=== PATIENT | female | born 1990 | race Caucasian/White ===

== ENCOUNTER → 2017-02-08 | Outpatient (CLI) | payer BC ==
[~2017-02-08] MED LIST: DOCU-94 PO; PRENTAB26 PO
[2017-02-08 14:09] LABS: URINE APPEARANCE CLEAR (CLEAR); URINE BILIRUBIN NEG (NEG); URINE COLOR YELLOW; URINE NITRITE NEG (NEG); URINE PH 5.5 (4.5-7.5); URINE SPECIFIC GRAVITY 1.024 (1.000-1.030); UROBILINOGEN NEG (NEG)
[2017-02-08 14:17] LABS: MANUAL MICROSCOPIC REQUIRED? NO; REVIEW REQ? NO
== END | disposition home or self-care (01) ==
LOC: C.LABSPEC 13:33
PROVIDERS: ATTEND Obstetrics & Gynecology
DX: Z34.00 Encounter for supervision of normal first pregnancy, unspecified trimester (principal)

== ENCOUNTER → 2017-02-14 | Outpatient (CLI) | payer BC | END | disposition home or self-care (01) | LOC: C.PAPS 09:23 | PROVIDERS: ATTEND Obstetrics & Gynecology | DX: Z12.4 Encounter for screening for malignant neoplasm of cervix (principal) ==

== ENCOUNTER → 2017-02-14 | Outpatient (CLI) | payer BC ==
[2017-02-14 17:43] LABS: BASO % 0.1 %; BASO ABS # 0.01 K/uL (0-0.2); COMPLETE YES; EOS % 0.7 %; GTGD 50 Grams; IG% 0.4 %; LYMPH % 17.5 %; LYMPH ABS # 1.47 K/uL (1.2-3.4); MEAN CELL VOLUME 84.6 fL (80-100); MEAN CORPUSCULAR HEMOGLOBIN 30.1 pg (25-34); MEAN CORPUSCULAR HGB CONC 35.6 g/dl (32-36); MEAN PLATELET VOLUME 11.6 fL (7.4-10.4); MONO % 5.6 %; NEUT % 75.7 %; PLATELET COUNT 202 K/uL (130-400); RED BLOOD COUNT 4.02 M/uL (4.2-5.4)
[2017-02-16 16:17] LABS: AFP CONCENTRATION 34.3 NG/ML; AFP MULTIPLE OF MEDIAN 0.87; AFPTS GESTATIONAL AGE 18.6 WEEKS; AFPTS INSULIN DEP DIABETIC? NO; AFPTS MATERNAL WT 190 LBS; ALPHA-FETOPROTEIN RACE CAUCASIAN=W; EDD DETERMINED BY ULTRASOUND; ESTRIOL MULTIPLE OF MEDIAN 1.03; HISTORY OF NTD NO; INHIBIN A 92 PG/ML; INHIBIN A MOM 0.61; REPEAT SAMPLE? NO; hCG MULTIPLE OF MEDIAN 1.18
== END | disposition home or self-care (01) ==
LOC: C.LAB1850 16:09
PROVIDERS: ATTEND Obstetrics & Gynecology
DX: Z34.02 Encounter for supervision of normal first pregnancy, second trimester (principal)

== ENCOUNTER → 2017-02-14 | Outpatient (CLI) | payer BC ==
[2017-02-17 00:33] LABS: CHLAMYDIA TRACH RNA*** NOT DETECTED (NOT DETECTED); GC (NEIS GONORRHOEAE)RNA** NOT DETECTED (NOT DETECTED)
== END | disposition home or self-care (01) ==
LOC: C.LABSPEC 17:47
PROVIDERS: ATTEND Obstetrics & Gynecology
DX: Z34.02 Encounter for supervision of normal first pregnancy, second trimester (principal)

== ENCOUNTER → 2017-04-26 | Outpatient (CLI) | payer BC ==
[2017-04-26 10:04] LABS: HEMATOCRIT 36.1 % (37-47)
[2017-04-26 11:20] LABS: GTGD 50 Grams
[2017-04-26 11:38] LABS: URINE APPEARANCE CLEAR (CLEAR); URINE BILIRUBIN NEG (NEG); URINE COLOR YELLOW; URINE EPITHELIAL CELL AUTO >30 /lpf (0-5); URINE NITRITE NEG (NEG); URINE PH 5.5 (4.5-7.5); URINE SPECIFIC GRAVITY 1.024 (1.000-1.030); UROBILINOGEN NEG (NEG)
[2017-04-26 11:46] LABS: MANUAL MICROSCOPIC REQUIRED? NO; REVIEW REQ? NO
== END | disposition home or self-care (01) ==
LOC: C.LAB1850 08:54
PROVIDERS: ATTEND Obstetrics & Gynecology
DX: O09.33 Supervision of pregnancy with insufficient antenatal care, third trimester (principal); Z3A.00 Weeks of gestation of pregnancy not specified

== ENCOUNTER → 2017-06-20 | Outpatient (CLI) | payer BC | END | disposition home or self-care (01) | LOC: C.LABSPEC 13:06 | PROVIDERS: ATTEND Obstetrics & Gynecology | DX: O09.33 Supervision of pregnancy with insufficient antenatal care, third trimester (principal); Z3A.00 Weeks of gestation of pregnancy not specified ==

== ENCOUNTER 2017-07-12 18:08 | Inpatient (IN) | payer BC ==
[~2017-07-12] VITALS: Ht 175.3 cm; Wt 103.0 kg
[2017-07-12] MEDS ORDERED: LACTATED RINGER'S 1000ML 1,000 ML IV PRN (19:08)
[2017-07-12 19:31] LABS: HEMATOCRIT 36.8 % (37-47); MEAN CELL VOLUME 84.4 fL (80-100); MEAN CORPUSCULAR HEMOGLOBIN 28.7 pg (25-34); MEAN PLATELET VOLUME 12.6 fL (7.4-10.4); PLATELET COUNT 158 K/uL (130-400); RED BLOOD COUNT 4.36 M/uL (4.2-5.4); WHITE BLOOD COUNT 8.19 K/uL (4.8-10.8)
[2017-07-12] MEDS ORDERED: PATIENT'S ALLERGY INFO NEEDS ENTERED SCH (20:00)
[2017-07-12 22:25] VITALS: Ht 175.3 cm; Wt 103.0 kg
[2017-07-12] MEDS ORDERED: PRENTAB26 PO (22:33)
[2017-07-13] MEDS: BUTORPHANOL TARTRATE 1 MG/ML VIAL IV PRN ×2 (02:26→05:02)
[2017-07-13] MEDS: LACTATED RINGER'S 1000ML 1,000 ML IV SCH ×2 (07:26→15:32)
[2017-07-13] MEDS ORDERED: LACTATED RINGER'S 1000ML 500 ML IV PRN ×2 (09:01→18:22)
[2017-07-13] MEDS: OXYTOCIN 30 UNITS/500ML NSS IV PRN ×2 (09:58→19:32)
[2017-07-13] MEDS ORDERED: BUTORPHANOL TARTRATE 1 MG/ML VIAL IV PRN (14:45)
[2017-07-13] MEDS ORDERED: BUPIVACAINE 0.25% 30 ML VIAL ONE (17:14)
[2017-07-13] MEDS ORDERED: EpHEDrine SULFATE INJ 50 MG/ML AMP ONE (17:14)
[2017-07-13] MEDS ORDERED: FENTANYL 2MCG/ML ROPIV 1.25MG/ML 100ML BAG EPI ONE (17:14)
[2017-07-13] MEDS ORDERED: FENTANYL CITRATE INJ 50 MCG/1 ML 2 ML VIAL ONE (17:15)
[2017-07-13] MEDS ORDERED: NALOXONE HCL INJ 1 MG in SODIUM CHLORIDE 0.9% 1000ML 1,000 ML IV PRN (18:22)
[2017-07-13] MEDS ORDERED: PROMETHAZINE HCL INJ 6.25 MG in SODIUM CHLORIDE 0.9% 50ML 50 ML IV PRN (18:30)
[2017-07-13] MEDS ORDERED: DiphenhydrAMINE HCL 50 MG/ML VIAL IV PRN (18:30)
[2017-07-13] MEDS ORDERED: NALOXONE HCL INJ 0.4 MG/1 ML VIAL/CARP IV PRN (18:30)
[2017-07-13] MEDS ORDERED: ONDANSETRON INJ 2 MG/ML 2 ML VIAL IV PRN (18:30)
[2017-07-13] MEDS ORDERED: EpHEDrine SULFATE INJ 50 MG/ML AMP IV PRN (18:30)
[2017-07-13] MEDS ORDERED: NALBUPHINE HCL INJ 10 MG/ML AMP IV PRN (18:30)
[2017-07-13] MEDS: FENTANYL 2MCG/ML ROPIV 1.25MG/ML 100ML BAG EPI PRN (18:54)
[2017-07-14] MEDS: FENTANYL 2MCG/ML ROPIV 1.25MG/ML 100ML BAG EPI PRN (01:27)
[2017-07-14] MEDS: LACTATED RINGER'S 1000ML 1,000 ML IV SCH (01:27)
[2017-07-14] MEDS: OXYTOCIN 30 UNITS/500ML NSS IV PRN (07:24)
[2017-07-14] MEDS ORDERED: ACETAMINOPHEN 325 MG TAB PO PRN (07:30)
[2017-07-14] MEDS ORDERED: BENZOCAINE 20% AER SPR 82.5 GM CAN EXT PRN (07:30)
[2017-07-14] MEDS ORDERED: SUPERCREAM 0.870 % 15GM JAR EXT PRN (07:30)
[2017-07-14] MEDS ORDERED: OXYTOCIN 30 UNITS/500ML NSS IV PRN (07:30)
[2017-07-14] MEDS ORDERED: LANOLIN OINT EXT PRN ×2 (07:30)
[2017-07-14] MEDS ORDERED: DIPHTHERIA/TETANUS/PERTUSSIS 0.5 ML SYR/VIAL IM. ONE (07:30)
[2017-07-14] MEDS ORDERED: ACETAMINOPHEN/CODEINE 300/30MG TAB PO PRN (07:30)
[2017-07-14] MEDS ORDERED: HYDROCORTISONE ACETATE 25 MG SUPP PR PRN (07:30)
--- NOTE | 2017-07-14 07:38 | Anesthesiology Progress Note ---
Anesthesia Post Op Note Date & Time Jul 14, 2017 at 07:38 Vital Signs Pain Intensity: 0.0 Notes Mental Status: alert / awake / arousable, participated in evaluation Pt Amnestic to Procedure: Yes Nausea / Vomiting: adequately controlled Pain: adequately controlled Airway Patency, RR, SpO2: stable & adequate BP & HR: stable & adequate Hydration State: stable & adequate Neuraxial Anesthesia: was administered, sensory block is resolving Anesthetic Complications: no major complications apparent
--- NOTE | 2017-07-14 07:41 | Anesthesia Procedure Note ---
Anesthesia Epidural Removal Nt Date & Time Jul 14, 2017 at 07:40 Vital Signs Pain Intensity: 0.0 Notes Mental Status: alert / awake / arousable, participated in evaluation Nausea / Vomiting: adequately controlled Pain: adequately controlled Airway Patency, RR, SpO2: stable & adequate BP & HR: stable & adequate Hydration State: stable & adequate Neuraxial Anesthesia: was administered, sensory block is resolving Anesthetic Complications: no major complications apparent, pt satisfied with anesthetic care Epidural: removed without complications, with tip intact
[2017-07-14] MEDS ORDERED: EpHEDrine SULFATE INJ 50 MG/ML AMP IV PRN (07:45)
[2017-07-14] MEDS ORDERED: ATROPINE SULFATE 0.1 MG/ML 5ML SYR IV PRN (07:45)
[2017-07-14] MEDS: PRENATAL VITAMIN TAB PO SCH (08:00)
[2017-07-14] MEDS: DOCUSATE SODIUM 100 MG CAP PO SCH ×2 (08:00→19:47)
[2017-07-14] MEDS: FERROUS SULFATE 325 MG TAB PO SCH (08:00)
--- NOTE | 2017-07-14 08:04 | DELIVERY SUMMARY ---
DATE OF OPERATION: 07/14/2017 DATE OF DELIVERY: 07/14/2017 FINDINGS: Viable male with Apgars of 8 and 9. Baby delivered by a low forceps delivery for nonreassuring heart rate tracing. Nuchal cord x1 reduced on the perineum. Pediatrics in attendance for delivery. Cord gasses, cord blood samples obtained. Midline 4th degree laceration repaired, bilateral periurethral lacerations repaired. Estimated blood loss 500 mL. LABOR NOTE: The patient is a 27-year-old 1, para 0 with an EDC of 14 July at 39+ weeks gestational age who was admitted for induction for term gestational hypertension. The patient was seen in the office on 12 July for routine obstetrical check. She was noted to have an elevated blood pressure. The patient had PIH labs drawn which were within normal limits, however with the gestational hypertension at term she was admitted for induction. The patient presented to labor and delivery the evening prior to the beginning of the induction for cervical Ingram placement. The Ingram was removed in the morning and the patient was 3 cm dilated. Delivering physician assumed care for the patient at this point. Pitocin was initiated per induction protocol and increased per protocol. At 1400 hours patient had no change in her cervix. Vertex was still felt to be too high for rupture and Pitocin was continued. At 1700 hours the patient had become uncomfortable. She received Stadol for pain but then anesthesia was consulted and an epidural was placed. Following placement of the epidural she had artificial rupture of membranes for clear fluid. An intrauterine pressure catheter was placed. Shortly thereafter the patient had a prolonged deceleration for 5 minutes. This necessitated discontinuing the Pitocin, starting exogenous O2 and an IV fluid bolus. Baby responded to a knee chest position to bring the tracing back to a category 2. Forty-five minutes later the Pitocin was halved and reinitiated. The patient made progress over the next 8 hours. She went to 9 cm and had her bladder drained and had another deceleration requiring discontinuation of the Pitocin. Following this the baseline went up to the 160s to 170s. There was good short term beat to beat variability with accelerations. The Pitocin was held for an hour and then reinitiated. The patient was rechecked and was not fully dilated and began her second stage. The patient had no sensation to push and her epidural rate was decreased. With the beginning of her second stage the patient had decelerations with each contraction. Sharp return to baseline with good variability, still tachycardia but there were accelerations. After an hour the decelerations became deeper with less variability. The patient was pushing effectively and bringing the vertex down to a +2 but since the epidural had been decreased she was very uncomfortable. Anesthesia and pediatrics were summoned to labor and delivery and the patient was taken back to the delivery room and put in the dorsal lithotomy position. Anesthesia dosed up her epidural so she was more comfortable. Verbal consent was obtained from the patient for placement of Castelan forceps and from a +2 presentation the baby was delivered over a midline 4th degree laceration. Nuchal cord x1 reduced on the perineum. The baby passed off to pediatrics who was in attendance for the delivery. Cord gasses, cord blood samples were obtained and the placenta was delivered spontaneously and sent for pathological evaluation. Inspection of the vagina showed 4th degree laceration with bilateral second degree periurethral tears. The rectal mucosa was closed with 2 layers of 4-0 Vicryl, the first a running locking stitch, second an imbricating stitch. The sphincter muscle was reapproximated with 3 interrupted [id number] 2-0 Vicryl sutures. The laceration was then repaired with 4-0 and 2-0 Vicryl. The bilateral periurethral tears were closed with running 4-0 Vicryl sutures. Estimated blood loss 500 mL. Sponge and needle count was correct. I attest to the content of the Intraoperative Record and any orders documented therein. Any exception s are noted below.
[2017-07-14] MEDS: ACETAMINOPHEN/CODEINE 300/30MG TAB PO PRN ×3 (09:12→18:30)
[2017-07-14 10:20] VITALS: BP 143/76; PULSE 96; TEMP 37.6
[2017-07-14 15:20] VITALS: BP 133/79; PULSE 112; TEMP 38
[2017-07-14] MEDS ORDERED: GENTAMICIN INJ 80 MG in DEXTROSE 5% 100ML 100 ML IV ONE (15:35)
[2017-07-14 16:44] LABS: CREATININE 0.58 mg/dl (0.60-1.20)
[2017-07-14] MEDS ORDERED: GENTAMICIN CONSULT ACTIVE PRN (16:45)
--- NOTE | 2017-07-14 16:48 | Pharmacy Progress Note ---
Pharmacy Antibiotic Consult Date of Service: Jul 14, 2017. Pharmacy Dosing Scope Pharmacy is consulted to initiate [] IV dosing therapy, order appropriate labs and adjust drug dose/frequency. Subjective The patient is a 27 year old female admitted on Jul 12, 2017 at 19:09. Objective Height (Feet): 5 Height (Inches): 9.00 Weight (Kilograms): 103.000 Lab Results (24hrs): Test 07/14/17 16:06 Assessment & Plan Assessment: * Patient is a 27 yo female admitted for vaginal delivery * Ampicillin/Gentamicin post-delivery Plan: * Traditional dosing using adjusted body weight 80.92, Vdf 0.3 * Gentamicin 160 mg q8H (~2 mg/kg adjusted body weight) * Goal peak level estimate 6-8 * Goal trough level <2 * Peak and trough level ordered surrounding 0900 dose on 07/15. Ampicillin 1 gm q6H Pharmacy will continue to follow and will adjust dose/frequency as necessary. Thank you
[2017-07-14] MEDS: AMPICILLIN IV 1 GM in SODIUM CHLOR 0.9% AD-VAN 50ML 50 ML IV SCH ×2 (17:46→23:55)
[2017-07-14] MEDS: IBUPROFEN 600 MG TAB PO PRN ×2 (18:30→23:55)
[2017-07-14 19:30] VITALS: BP 128/93; PULSE 114; TEMP 37.6
[2017-07-14] MEDS: GENTAMICIN INJ 160 MG in DEXTROSE 5% 100ML 100 ML IV SCH (19:59)
[2017-07-14 23:45] VITALS: BP 127/77; PULSE 98; TEMP 37.1; O2SAT 97
[2017-07-15] VITALS (7 sets, daily range): BP systolic 124–137; BP diastolic 76–86; PULSE 85–107; TEMP 36.5–37.5; O2SAT 97–99
[2017-07-15] MEDS: GENTAMICIN INJ 160 MG in DEXTROSE 5% 100ML 100 ML IV SCH ×2 (03:33→13:20)
[2017-07-15] MEDS: AMPICILLIN IV 1 GM in SODIUM CHLOR 0.9% AD-VAN 50ML 50 ML IV SCH ×2 (05:52→12:20)
[2017-07-15] MEDS: IBUPROFEN 600 MG TAB PO PRN ×4 (05:54→23:57)
--- NOTE | 2017-07-15 06:45 | Progress Note ---
Subjective Jul 15, 2017. Subjective conversation w/ patient, physical exam Ambulation: ambulating normally Voiding: no voiding problems Passing Gas: Yes Diet Tolerance: Regular Diet Lochia: Small Feeding Type: Breast Feeding Review of Systems Constitutional: No fever, No chills, No sweats, No weight loss, No weakness, No fatigue, No problem reported Breast: No see HPI, No breast lump, No change in shape, No nipple discharge, No breast pain, No problem reported Female : No see HPI, No dysuria, No urinary frequency, No hematuria, No incontinence, No abnormal vaginal bleeding, No vaginal discharge, No problem reported Objective Vital Signs Date Time Temp Pulse Resp B/P (MAP) Pulse Ox O2 Delivery O2 Flow Rate FiO2 07/15/17 03:30 36.5 85 16 126/76 (93) 99 Room Air 07/14/17 23:45 Room Air 07/14/17 23:45 37.1 98 16 127/77 (94) 97 Room Air 07/14/17 19:30 37.6 114 18 128/93 (105) Room Air 07/14/17 19:30 Room Air 07/14/17 15:20 38.0 112 20 133/79 (97) Room Air 07/14/17 15:20 Room Air 07/14/17 10:20 37.6 96 20 143/76 (98) Room Air 07/14/17 10:20 Room Air Physical Exam General Appearance: WELL-APPEARING, NO APPARENT DISTRESS Abdomen: non tender, soft Fundus: Firm, Non-Tender, Relation to Umbilicus (2 below U) Laboratory Results Last 24 Hours Test 07/14/17 16:06 07/15/17 06:24 Creatinine 0.58 mg/dl Est Creatinine Clear Calc Drug Dose 186.2 ml/min Estimated GFR () 146.4 Estimated GFR (Non- 126.3 Assessment and Plan Day#: 1 Continue Routine Care: s/p forceps delivery with temp elevation to 38 degrees. now afebrile for 12 hours on amp & gent will continue for total of 24 hours. continue rest of care plan.
--- NOTE | 2017-07-15 07:04 | Discharge Instructions ---
Discharge Instructions Date of Service Jul 15, 2017. Admission Reason for Admission: Check Blood Pressure Discharge Discharge Diagnosis / Problem: DELIVERY VAGINAL WITH VACUUM Discharge Goals Goal(s): Routine recovery after delivery Medications Continue Dispensed Medications: supercream, dermaplast, tucks, lansinoh Activity Recommendations Activity Limitations: per Instructions/Follow-up section . Instructions / Follow-Up Instructions / Follow-Up ACTIVITY RECOMMENDATIONS: * Gradual return to full activity over the next 2-3 weeks. * No lifting - nothing heavier than baby over the next 2-3 weeks. * Do not engage in vigorous exercise, sexual activity or sports until cleared by your physician. * Do not drive or operate any motorized equipment until cleared by your physician. * You may shower/bathe daily. MEDICATIONS: For discomfort or pain, you may use Acetaminophen (Tylenol), Ibuprofen (Advil), or Naproxen (Aleve) following the package directions. For constipation you may use Colace following the package directions. BREAST CARE: If you are not breast feeding: * Wear a supportive bra 24 hours a day for one to two weeks. * Avoid stimulating your breasts and nipples as much as possible during the first few weeks after delivery. * When taking a shower, have the warm water hit your back, not breasts. * When your breasts feel full, apply ice packs. Usually three to four times a day helps ease the discomfort. * Take a mild pain medication (Tylenol / Motrin) when you are uncomfortable. If breast feeding: * Use breast milk to lubricate nipples. Lansinoh cream may be used for sore nipples. You do not need to remove cream prior to breast feeding. If using a different brand of cream, check the label for directions regarding removal of cream prior to nursing. * Wear a supportive bra. * If having problems with breasts or breast feeding, call a netsuite consultant or your health care provider. EPISIOTOMY CARE: After delivery, if you have an episiotomy (stitches), the following steps will ease discomfort and aid healing. * For the first 24 hours after delivery, place ice packs next to your episiotomy to help reduce swelling. * After the first 24 hour-period, sitz baths, either portable or in the tub, are suggested. A shower with a shower arm sprayed over the episiotomy may be comforting. * Magi care should be done after each voiding and bowel movement. Squirt warm water from a plastic bottle over the perineum (region of the body between the anus and urinary opening) and pat dry. * Use Dermoplast to ease discomfort. Shake container. Glen directly over the episiotomy. Place a Tucks on a clean sanitary pad next to your episiotomy. SPECIAL CARE INSTRUCTIONS: When you are discharged from the hospital, it is important for you to follow the instructions listed below: * During the first week at home, you should be able to care for yourself and your baby. In addition, the usual light household activities are encouraged. * Limit your activities to the way you feel. Do not try to clean the house or move furniture. Be sensible. * If you actively engage in sports and have done so up until the time of your delivery, you may resume these activities as soon as you feel able. This may take up to one month or even longer. Use good judgment. * Continue to take your vitamins for at least six weeks after the of your baby. * Your diet need not be limited unless you were on a special diet before your delivery. Breast-feeding mothers need around 2500 calories per day and at least 64-80 ounces of fluid per day (8 to 10 glasses). * You should eat foods from the four major food groups. Crash diets or fad diets are to be avoided. Eating lean meats, fresh fruits and vegetables, low-fat dairy products, high fiber foods and a regular exercise program, will help you get back to your pre- weight without putting your health at risk. * Constipation is sometimes a problem after delivery. Take a mild laxative as needed. If breast feeding, Milk of Magnesia is acceptable to use. You may use a suppository or Fleets enema if no episiotomy. * A daily shower or tub bath is suggested. Be sure to thoroughly and gently dry the perineum. * A bloody vaginal discharge will usually continue until around four weeks post . A small amount of bleeding may continue for as long as six weeks. Vaginal discharge changes from the bright red bleeding after delivery to pink then brownish and finally yellowish-pink before becoming white and disappearing. * Bleeding may increase with activity. Your first period may come in 4-8 weeks. If you are breast feeding, your period may be delayed even longer. * [place] (sex) can begin whenever both you and your partner feel comfortable and do not have any form of genital infection. It is recommended that you wait at least six weeks for internal and external healing to occur. If you have questions, please talk to your health care practitioner. A condom should be used to prevent infection and . * Foreplay, gentle intercourse and lubrication is very important the first several times to prevent pain. A water-based lubricant such as K-Y jelly or Astroglide may be used. * If you have RH negative blood and your baby is RH positive, you will receive RHOGAM by injection prior to discharge. The nurse will give you a card to keep with you that has the date and place that you received RHOGAM after delivery. * During your care, you had a Rubella screen done to check for the presence of rubella antibodies in your blood. If your test was negative, you will receive a Rubella vaccine prior to discharge. This vaccine may cause a fever, soreness at the injection site and flu-like symptoms. If these symptoms persist, notify your health care practitioner. is not advised for one month after a Rubella vaccine. * Verbalizes understanding of car seat law as reviewed with patient nursing. * Car Seat hand-out given and reviewed with patient by nursing. * Shaken baby information reviewed with patient by nursing. Call you doctor if: * Heavy bleeding (saturating several pads an hour) or passing clots the size of your fist. * A fever >101 degrees F (38.3 degrees C) on two occasions four hours apart and /or chills. * Unusual pain in the pelvic or vaginal areas. * "Baby Blues" lasting longer than two weeks. If you have any questions or concerns, call your health care practitioner at . FOLLOW UP VISIT: * Please call the office at to schedule a 6 week examination. It is important you keep this appointment. It is important for you to make arrangements for either yearly or twice yearly check-ups thereafter. Current Hospital Diet Patient's current hospital diet: Regular OB Diet Discharge Diet Recommended Diet: Regular Diet Pending Studies Studies pending at discharge: no Medical Emergencies . Who to Call and When: Medical Emergencies: If at any time you feel your situation is an emergency, please call [phone] immediately. . Non-Emergent Contact Non-Emergency issues call your: Primary Care Provider . . "Provider Documentation" section prepared by Rachna Varma. . VTE Core Measure Inpt VTE Proph given/why not?: Treatment not indicated
[2017-07-15 07:21] LABS: CREATININE 0.43 mg/dl (0.60-1.20)
[2017-07-15] MEDS: DOCUSATE SODIUM 100 MG CAP PO SCH ×2 (07:58→20:12)
[2017-07-15] MEDS: FERROUS SULFATE 325 MG TAB PO SCH (07:58)
[2017-07-15] MEDS: PRENATAL VITAMIN TAB PO SCH (07:58)
[2017-07-15] MEDS: DOCUSATE SODIUM/SENNA 50/8.6MG TAB PO SCH (09:00)
[2017-07-15] MEDS ORDERED: GENT. PEAK 1 EA IV SCH (09:00)
[2017-07-15] MEDS ORDERED: BISACODYL 5 MG TABEC PO SCH (20:00)
[2017-07-16 07:35] LABS: CREATININE 0.28 mg/dl (0.60-1.20)
--- NOTE | 2017-07-16 08:06 | Progress Note ---
Subjective Jul 16, 2017. Subjective conversation w/ patient, physical exam Ambulation: ambulating normally Voiding: no voiding problems Passing Gas: Yes Diet Tolerance: Regular Diet Lochia: Moderate Feeding Type: Breast Feeding Pain: controlled Review of Systems Constitutional: No problem reported Respiratory: No problem reported Cardiac: No problem reported Breast: No problem reported Abdomen: No problem reported Female : No problem reported Objective Vital Signs Date Time Temp Pulse Resp B/P (MAP) Pulse Ox O2 Delivery O2 Flow Rate FiO2 07/15/17 23:50 37.0 96 18 132/76 (94) 98 Room Air 07/15/17 23:50 Room Air 07/15/17 19:45 37.1 106 18 132/80 (97) 97 Room Air 07/15/17 16:25 97 Room Air 07/15/17 15:00 37.5 107 18 132/86 (101) 97 Room Air 07/15/17 12:00 37.0 107 18 137/80 (99) 97 Room Air Physical Exam General Appearance: WELL-APPEARING, NO APPARENT DISTRESS Respiratory/Chest: no respiratory distress Cardiovascular: regular rate, rhythm Abdomen: non tender, soft Fundus: Firm Extremities: normal inspection Laboratory Results Last 24 Hours Test 07/16/17 06:50 Creatinine 0.28 mg/dl Est Creatinine Clear Calc Drug Dose 385.6 ml/min Estimated GFR () > 150.0 Estimated GFR (Non- > 150.0 Assessment and Plan Post- Day#: 2 Continue Routine Care: PPD#2 doing well s/p forceps delivery with 4th degree tear. Discussed stool softeners - rx colace. Discharge to home today, instructions discussed. F/u office 6w.
[2017-07-16] MEDS ORDERED: DOCU-94 PO (08:07)
[2017-07-16] MEDS: DOCUSATE SODIUM 100 MG CAP PO SCH (08:48)
[2017-07-16] MEDS: DOCUSATE SODIUM/SENNA 50/8.6MG TAB PO SCH (08:48)
[2017-07-16] MEDS: PRENATAL VITAMIN TAB PO SCH (08:48)
[2017-07-16] MEDS: FERROUS SULFATE 325 MG TAB PO SCH (08:48)
[2017-07-16 08:50] VITALS: BP 137/72; PULSE 92; TEMP 36.9
[2017-07-16] MEDS: IBUPROFEN 600 MG TAB PO PRN (08:50)
[2017-07-16 15:30] VITALS: BP 145/95; PULSE 93; TEMP 37.3
[2017-07-16 17:01] VITALS: BP 142/90
[2017-07-16 17:15] VITALS: BP_DIAS 90; PULSE 93; TEMP 37.3
--- NOTE | 2017-07-17 23:44 | DISCHARGE SUMMARY ---
ADMITTING DIAGNOSES: 1. Complicated at 39 weeks gestational age. 2. Gestational hypertension. DISCHARGE DIAGNOSES: 1. Same. 2. Nonreassuring heart rate tracing. 3. fever. PROCEDURES PERFORMED: 1. Low forceps delivery. 2. Repair of fourth degree laceration. 3. antibiotics. DISCHARGE MEDICATION: Colace 100 mg p.o. q. daily. ADMISSION HISTORY: The patient is a 27-year-old 1, para 0 with an EDC of 14 July who was admitted at 39+ weeks gestational age for induction of labor for term gestational hypertension. The patient was seen in the office on 12 July for routine obstetrical check. She was noted to have an elevated blood pressure. The patient had preeclamptic labs drawn which were within normal limits; however, with the gestational hypertension at term, she was admitted for induction. The patient presented to labor and delivery on the 12 of July and had a cervical Ingram placement. ADMISSION PHYSICAL EXAMINATION: GENERAL: Showed a gravid female in no acute distress. VITAL SIGNS: Blood pressure 140/90. HEENT: Unremarkable. NECK: Supple. LUNGS: Clear. HEART: With a regular rhythm and rate. ABDOMEN: Gravid, vertex, positive heart tones, estimated weight of 8 pounds. PELVIC: Showed the cervix to be 3 cm dilated. EXTREMITIES: Showed +1 edema. NEUROLOGICAL: Grossly intact. ADMISSION LABORATORY VALUES: Showed an H&H of 12.5 and 36.8. HOSPITAL COURSE: The patient had the cervical Ingram placement which was removed in the morning, her cervix was 3 cm dilated. Delivering physician assumed care for the patient at this point. Pitocin was initiated per induction protocol and increased per protocol. Membranes were ruptured at approximately 1700 hours for clear fluid. She received Stadol for pain and then anesthesia was consulted and epidural was placed. Following the epidural, an intrauterine pressure catheter was placed to monitor contractions. Shortly thereafter, the patient had a prolonged deceleration for 5 minutes. This necessitated discontinuing the Pitocin and starting exogenous O2 and IV fluid bolus. Baby responded to knee-chest position and brought the tracing back to category 2. 45 minutes later, the Pitocin was halved and reinitiated. The patient made progress over the next hour, she went to 9 cm and had her bladder drained and had another deceleration requiring discontinuation of the Pitocin. Following this, the baseline went to the 160s-170s, but there was good short term [id number] variability with accelerations. Tracing was felt to be category 2. Pitocin was held for an hour and then reinitiated. The patient was rechecked and was fully dilated and began her second stage. The patient had no sensation to push and her epidural rate was decreased. With the beginning of the second stage, the patient had decelerations with these contractions, sharp return to baseline with good variability. Tachycardia was still present, but there were accelerations. After an hour, the decelerations became deeper with less variability. The patient was pushing effectively and brought the vertex down to a +2 but after the epidural had been decreased, she was very uncomfortable. Anesthesia and pediatrics were summoned to labor and delivery and the patient was taken back to the delivery room and put in a dorsal lithotomy position. Anesthesia dosed up the epidural, so she was comfortable. Verbal consent was obtained from the patient for placement of Castelan forceps and from a +2 presentation, the baby was delivered over midline. Fourth degree laceration for nonreassuring heart rate tracing. Nuchal cord x1 was reduced on the perineum. Baby was passed off to pediatrics who was in attendance for the delivery. Cord blood gases, cord samples were obtained. Placenta delivered spontaneously and sent for pathological evaluation. The fourth degree laceration was repaired. Estimated blood loss was 500 mL. on the afternoon of delivery, the patient spiked a fever. She was started on antibiotics per the direction of the covering meat counter worker at that point. The patient defervesced and the antibiotics were discontinued. She was discharged home on the second day with routine discharge instructions. She will follow up in the office in 6 weeks' time for a check but as always, she was instructed to call with any questions, problems or difficulties.
== END 2017-07-16 17:20 | disposition home or self-care (01) | DRG 774 ==
LOC: C.OBG 18:08 → C.OPB 18:08 → C.OBG 19:09 → C.OPB 19:09 → C.LD 22:16 → C.OBG 07-14 11:03
PROVIDERS: ADMIT Obstetrics & Gynecology; ATTEND Obstetrics & Gynecology
PROC: 3E0P7GC Introduction of Other Therapeutic Substance into Female Reproductive, Via Natural or Artificial Opening (ICD-10-PCS; 2017-07-12)
PROC: 3E033VJ Introduction of Other Hormone into Peripheral Vein, Percutaneous Approach (ICD-10-PCS; 2017-07-13)
PROC: 10903ZC Drainage of Amniotic Fluid, Therapeutic from Products of Conception, Percutaneous Approach (ICD-10-PCS; 2017-07-13)
PROC: 0UQMXZZ Repair Vulva, External Approach (ICD-10-PCS; principal; 2017-07-14)
PROC: 0DQR0ZZ Repair Anal Sphincter, Open Approach (ICD-10-PCS; principal; 2017-07-14)
PROC: 0KQM0ZZ Repair Perineum Muscle, Open Approach (ICD-10-PCS; principal; 2017-07-14)
PROC: 10D07Z3 Extraction of Products of Conception, Low Forceps, Via Natural or Artificial Opening (ICD-10-PCS; principal; 2017-07-14)
PROC: 0DQP0ZZ Repair Rectum, Open Approach (ICD-10-PCS; principal; 2017-07-14)
DX: O14.94 Unspecified pre-eclampsia, complicating childbirth (principal); O86.4 Pyrexia of unknown origin following delivery; O70.3 Fourth degree perineal laceration during delivery; O71.82 Other specified trauma to perineum and vulva; O76 Abnormality in fetal heart rate and rhythm complicating labor and delivery; O69.81X0 Labor and delivery complicated by cord around neck, without compression, not applicable or unspecified; Z3A.39 39 weeks gestation of pregnancy; Z37.0 Single live birth

== ENCOUNTER → 2017-07-12 | Outpatient (CLI) | payer BC ==
[2017-07-12 13:20] LABS: HEMATOCRIT 37.9 % (37-47); MEAN CELL VOLUME 83.5 fL (80-100); MEAN CORPUSCULAR HEMOGLOBIN 28.6 pg (25-34); MEAN CORPUSCULAR HGB CONC 34.3 g/dl (32-36); MEAN PLATELET VOLUME 12.5 fL (7.4-10.4); PLATELET COUNT 143 K/uL (130-400); RED BLOOD COUNT 4.54 M/uL (4.2-5.4); WHITE BLOOD COUNT 8.03 K/uL (4.8-10.8)
[2017-07-12 14:16] LABS: ALB/GLOB RATIO 0.7 (0.9-2); ALKALINE PHOSPHATASE 177 U/L (45-117); ALT/SGPT 24 U/L (12-78); AST/SGOT 18 U/L (15-37); BLOOD UREA NITROGEN 5 mg/dl (7-18); BUN/CREATININE RATIO 9.8 (10-20); CALCIUM 8.9 mg/dl (8.5-10.1); CARBON DIOXIDE 24 mmol/L (21-32); CHLORIDE 105 mmol/L (98-107); CREATININE 0.48 mg/dl (0.60-1.20); GLUCOSE 76 mg/dl (70-99); POTASSIUM 3.5 mmol/L (3.5-5.1); SODIUM 137 mmol/L (136-145)
== END | disposition home or self-care (01) ==
LOC: C.LAB1850 12:10
PROVIDERS: ATTEND Obstetrics & Gynecology
DX: O13.3 Gestational [pregnancy-induced] hypertension without significant proteinuria, third trimester (principal)

== ENCOUNTER 2018-03-10 13:32 | Emergency (ER) | payer BC ==
[~2018-03-10] VITALS: Ht 175.3 cm; Wt 89.9 kg
[2018-03-10 13:39] VITALS: TEMP 37.3; Ht 175.3 cm; Wt 89.9 kg
[2018-03-10] MEDS ORDERED: SODIUM CHLORIDE 0.9% 1000ML 1,000 ML IV STA (14:09)
[2018-03-10] MEDS ORDERED: OPTIRAY 320 IV PRN (14:15)
[2018-03-10] MEDS ORDERED: birth control patch TOP (14:25)
[2018-03-10 14:44] LABS: EOS % 0.2 %; EOS ABS # 0.01 K/uL (0-0.5); HEMATOCRIT 37.8 % (37-47); HEMOGLOBIN 13.2 g/dL (12.0-16.0); IG# 0.01 K/uL (0.00-0.02); LYMPH % 20.4 %; LYMPH ABS # 1.24 K/uL (1.2-3.4); MEAN CELL VOLUME 83.1 fL (80-100); MEAN CORPUSCULAR HGB CONC 34.9 g/dl (32-36); MEAN PLATELET VOLUME 10.6 fL (7.4-10.4); MONO % 7.7 %; MONO ABS # 0.47 K/uL (0.11-0.59); NEUT % 71.5 %; NEUT ABS # 4.36 K/uL (1.4-6.5); PLATELET COUNT 181 K/uL (130-400); RED CELL DISTRIBUTION WIDTH CV 12.6 % (11.5-14.5); RED CELL DISTRIBUTION WIDTH SD 37.8 fL (36.4-46.3); WHITE BLOOD COUNT 6.09 K/uL (4.8-10.8)
[2018-03-10 15:11] LABS: ALBUMIN 3.7 gm/dl (3.4-5.0); CALCIUM 9.1 mg/dl (8.5-10.1); CREATININE 0.66 mg/dl (0.60-1.20); POTASSIUM 3.4 mmol/L (3.5-5.1)
[2018-03-10 15:14] LABS: TOTAL PROTEIN 7.9 gm/dl (6.4-8.2)
--- NOTE | 2018-03-10 15:30 | EMERGENCY ROOM VISIT NOTE ---
ED Visit Note First contact with patient: 13:53 CHIEF COMPLAINT: Abdominal pain, diarrhea and bloody stool HISTORY OF PRESENTING ILLNESS: This is a 27-year-old female who presents to the emergency department with complaint of abdominal pain, diarrhea and bloody stool that started this morning. Patient states that she woke up having abdominal pain and bloating, she states that the pain has been coming in intermittent waves of pressure and cramps and she feels the urge to have a bowel movement. She states that she has had diarrhea today she has had at least 6 episodes, 2 of which have been bright red blood, however subsequent diarrhea has been nonbloody. She states that her abdominal pain feels a little bit better after moving her bowels. She denies any associated nausea or vomiting. She denies any fevers, but does state she has had some cold sweats off and on today. She denies any urinary symptoms. She states that she had chicken wings a few days ago, she cannot think of anything else unusual. She denies any recent travel, denies any recent antibiotics in the past few months, and denies any recent sick contacts with GI symptoms. She denies a family history of IBD. REVIEW OF SYSTEMS: A complete 10 point review of systems was reviewed with the patient with pertinent positives and negatives as per history of present illness. All else were negative. PAST MEDICAL HISTORY: No significant past medical or surgical history. FAMILY HISTORY: No family history of inflammatory bowel disease. SOCIAL HISTORY: Lives at home. Denies tobacco use. ALLERGIES: No known allergies PHYSICAL EXAM: CONSTITUTIONAL: Pleasant and cooperative. No acute distress. Mildly dehydrated , but otherwise well appearing and well nourished. HEENT: Normocephalic, atraumatic. Pupils equal, round and reactive to light, EOMI. TMs normal. Pharynx normal. Tacky mucous membranes. NECK: Supple, full active range of motion without discomfort. RESPIRATORY: Clear to auscultation bilaterally with no wheezing, crackles, rhonchi or stridor. Equal expansion bilaterally. CARDIOVASCULAR: Regular rate and rhythm with no murmurs, rubs or gallops. Normal peripheral perfusion. No edema. GASTROINTESTINAL: Soft, tender to palpation of the left lower quadrant, nondistended. No rebound tenderness or guarding. No CVA tenderness. No palpable masses or HSM. Bowel sounds present in all quadrants. DIGITAL RECTAL EXAM: Normal rectal tone, no external or internal hemorrhoids, no anal fissures or areas of tenderness, no masses palpable. Brown stool, guaiac positive. MUSCULOSKELETAL: Full range of motion of all joints without discomfort. INTEGUMENTARY: No rash or other significant dermatologic conditions noted. NEUROLOGIC: Alert and oriented X 4 with normal affect. Normal strength and sensation in all 4 extremities. No focal neurologic deficits noted. Normal speech. Normal gait observed. ED COURSE AND MEDICAL DECISION MAKING: CC: Patient presenting with complaint of abdominal pain, diarrhea, and bloody stools DIFFERENTIAL DIAGNOSIS: Includes, but not limited to gastroenteritis, food poisoning, colitis, inflammatory bowel disease, GI bleed, hemorrhoids, anal fissure, diverticulitis, anemia, dehydration, among others. INTERPRETATION OF LABS: No leukocytosis, no anemia, no significant electrolyte abnormalities, normal renal function, normal liver enzymes and lipase. Negative serum . UA appears consistent with contamination and dehydration, no clear evidence for infection. IMAGING: ABD/PELVIS IV CONTRAST ONLY CLINICAL HISTORY: 27 years-old Female presenting with ABDOMINAL PAIN, BLOODY STOOLS, severe abdominal cramping. TECHNIQUE: Multidetector CT of the abdomen and pelvis was performed after the administration of intravenous contrast. IV contrast: 94 mL of Optiray 320. A dose lowering technique was used consistent with the principles of ALARA (as low as reasonably achievable). COMPARISON: None. CT DOSE (mGy.cm): The estimated cumulative dose is 484.25 mGy.cm. FINDINGS: Cable Technician topogram: Unremarkable. Lung bases: Minimal basilar opacities, likely atelectasis. Normal heart size. No pericardial or pleural effusion. Liver: Normal morphology. No liver lesion. Patent hepatic vasculature. Biliary: No intrahepatic or extrahepatic biliary ductal dilatation. Normal gallbladder. Pancreas: Normal. Spleen: Normal. Adrenal glands: Normal. Kidneys and ureters: Subcentimeter hypodensity in the posterior aspect of the interpolar region the right kidney likely small cyst. Similar cyst noted in the left kidney. Parenchyma otherwise normal. No nephrolithiasis. No hydronephrosis. Bladder: Incompletely evaluated secondary to underdistention. Pelvic organs: Uterus and ovaries normal. Bowel: Mild colonic wall thickening of the descending colon with trace pericolonic inflammatory change. The transverse colon is involved to a lesser degree. The sigmoid colon and rectum are not overtly inflamed. The appendix is normal. No bowel obstruction. Peritoneal cavity: No free fluid or intraperitoneal gas. Lymph nodes: No enlarged lymph nodes in the abdomen or pelvis. Vasculature: Aorta and IVC patent and normal in caliber. Abdominal wall: Normal. Musculoskeletal: Normal. IMPRESSION: 1. Thickening along the transverse and descending colon, most likely infectious colitis. Only mild pericolonic inflammatory changes. Ulcerative colitis is a less likely diagnostic consideration considering lack of involvement of the sigmoid colon and rectum. MEDICATION RECONCILIATION: I attest that I have personally reviewed the patient 's current medication list. INITIAL VITAL SIGNS REVIEW: I reviewed the patient's initial vital signs and interpret them as follows: T: Afebrile; BP: Hypertensive; HR: Tachycardic; RR : Within normal limits; Pulse Ox: Within normal limits on room air. Blood pressure screening: The patient was found to have an elevated blood pressure, which was felt to be situational. SUMMARY: Patient was evaluated at bedside, history and physical exam performed. Patient is alert and oriented, no acute distress, resting calmly in the stretcher. She has abdominal tenderness most significant in the left lower quadrant, but no rebound tenderness or guarding. Guaiac POSITIVE stool on rectal exam. Orders were placed at bedside for labs, UA, , IV fluids for hydration, CT abdomen/pelvis to evaluate for diverticulitis. Patient was offered something for pain, she declined at this time. Patient discussed with Dr. Espinoza, who agrees with my assessment and plan. Labs and imaging reviewed as above, no significant abnormalities. CT findings consistent with colitis, presumed infectious. Given the patient's acute onset of symptoms, I do suspect that she has a form of food poisoning or gastroenteritis. She has been afebrile, has a normal white count, and tachycardia is improved after IV fluids. I do not feel that she warrants antibiotic treatment at this time. Stool cultures pending. Patient reassessed multiple times throughout ED stay, she is much improved, and tolerating oral fluids well. Patient was updated on all results and plan for discharge, she was encouraged to follow closely with her primary care provider. Patient was also given strict return precautions should her symptoms worsen, she verbalized understanding. Patient was discharged home in stable condition and ambulatory. Current/Historical Medications Scheduled [ control patch], 1 PATCH TOP UD Allergies Coded Allergies: No Known Allergies (Unverified , 5/5/18) Vital Signs Date Time Temp Pulse Resp B/P (MAP) Pulse Ox O2 Delivery O2 Flow Rate FiO2 03/10/18 17:50 92 16 140/82 97 03/10/18 15:25 88 16 148/80 98 Room Air 03/10/18 13:39 37.3 126 20 158/89 97 Room Air Laboratory Results 03/10/18 14:30 Red Blood Count 4.55, Mean Corpuscular Volume 83.1, Mean Corpuscular Hemoglobin 29.0, Mean Corpuscular Hemoglobin Concent 34.9, Mean Platelet Volume 10.6, Neutrophils (%) (Auto) 71.5, Lymphocytes (%) (Auto) 20.4, Monocytes (%) (Auto) 7.7, Eosinophils (%) (Auto) 0.2, Basophils (%) (Auto) 0.0, Neutrophils # (Auto) 4.36, Lymphocytes # (Auto) 1.24, Monocytes # (Auto) 0.47, Eosinophils # (Auto) 0.01, Basophils # (Auto) 0.00 03/10/18 14:30 Test 03/10/18 14:25 03/10/18 14:30 Urine Color DK YELLOW Urine Appearance CLOUDY (CLEAR) Urine pH 5.0 (4.5-7.5) Urine Specific [place] 1.038 (1.000-1.030) Urine Protein TRACE (NEG) Urine Glucose (UA) NEG (NEG) Urine Ketones TRACE (NEG) Urine Occult Blood TRACE (NEG) Urine Nitrite NEG (NEG) Urine Bilirubin NEG (NEG) Urine Urobilinogen NEG (NEG) Urine Leukocyte Esterase NEG (NEG) Urine WBC (Auto) 5-10 /hpf (0-5) Urine RBC (Auto) 0-4 /hpf (0-4) Urine Hyaline Casts (Auto) 10-30 /lpf (0-5) Urine Epithelial Cells (Auto) >30 /lpf (0-5) Urine Bacteria (Auto) NEG (NEG) White Blood Count 6.09 K/uL (4.8-10.8) Red Blood Count 4.55 M/uL (4.2-5.4) Hemoglobin 13.2 g/dL (12.0-16.0) Hematocrit 37.8 % (37-47) Mean Corpuscular Volume 83.1 fL (80-100) Mean Corpuscular Hemoglobin 29.0 pg (25-34) Mean Corpuscular Hemoglobin Concent 34.9 g/dl (32-36) Platelet Count 181 K/uL (130-400) Mean Platelet Volume 10.6 fL (7.4-10.4) Neutrophils (%) (Auto) 71.5 % Lymphocytes (%) (Auto) 20.4 % Monocytes (%) (Auto) 7.7 % Eosinophils (%) (Auto) 0.2 % Basophils (%) (Auto) 0.0 % Neutrophils # (Auto) 4.36 K/uL (1.4-6.5) Lymphocytes # (Auto) 1.24 K/uL (1.2-3.4) Monocytes # (Auto) 0.47 K/uL (0.11-0.59) Eosinophils # (Auto) 0.01 K/uL (0-0.5) Basophils # (Auto) 0.00 K/uL (0-0.2) RDW Standard Deviation 37.8 fL (36.4-46.3) RDW Coefficient of Variation 12.6 % (11.5-14.5) Immature Granulocyte % (Auto) 0.2 % Immature Granulocyte # (Auto) 0.01 K/uL (0.00-0.02) Anion Gap 7.0 mmol/L (3-11) Est Creatinine Clear Calc Drug Dose 153.0 ml/min Estimated GFR () 140.3 Estimated GFR (Non- 121.1 BUN/Creatinine Ratio 16.0 (10-20) Calcium Level 9.1 mg/dl (8.5-10.1) Total Bilirubin 0.6 mg/dl (0.2-1) Direct Bilirubin 0.1 mg/dl (0-0.2) Aspartate Amino Transf (AST/SGOT) 14 U/L (15-37) Alanine Aminotransferase (ALT/SGPT) 18 U/L (12-78) Alkaline Phosphatase 72 U/L (45-117) Total Protein 7.9 gm/dl (6.4-8.2) Albumin 3.7 gm/dl (3.4-5.0) Lipase 65 U/L (73-393) Human Chorionic Gonadotropin, Qual NEG (NEG) Medications Administered Medications (Trade) Dose Ordered Sig/Fortino Route Start Time Stop Time Status Last Admin Dose Admin Sodium Chloride 1,000 ml @ 999 mls/hr Q1H1M STAT IV 03/10/18 14:09 03/10/18 15:09 DC 03/10/18 14:33 999 MLS/HR Departure Information Impression Primary Impression: Colitis presumed infectious Dispostion Home / Self-Care Condition GOOD Referrals No Doctor, Assigned (PCP) Patient Instructions ED Diet [place], ED Food Poison Or Gastroenteritis, My [facility] Additional Instructions You have been treated in the Emergency Department for your abdominal pain and diarrhea. Laboratory results and imaging studies have ruled out any emergent causes for your symptoms which would warrant admission or surgery. Your CT scan shows signs of colitis, which is most likely an infectious process. Your body should be able to clear this infection on its own. For pain control, you can use the following [id number] medicines (if >12 yo): - Regular strength (325mg/tab) Tylenol (acetaminophen) 2 tabs every 4-6 hours as needed. Do not exceed 10 tablets in a 24 hour period. Avoid taking more than 3000 mg of Tylenol per day. This includes any other sources of acetaminophen you may take on a regular basis. - Regular strength (200 mg/tab) Advil (ibuprofen) 3 tabs every 6-8 hours as needed. Do not exceed a dose of 2400 mg per day. Drink plenty of fluids to stay well hydrated. Stick with a bland diet and avoid any dairy or spicy foods until your diarrhea is improving, then slowly advance back to a normal diet as tolerated. Please follow-up with your primary care provider in the next few days. Return to the emergency department for severe worsening abdominal or back pain, worsening nausea/vomiting, vomiting blood, large amounts of blood in your stool or urine, fevers > 101.5, severe dizziness or passing out, or any other concerns. Work Instructions Return To Work: 2 days
--- NOTE | 2018-03-10 15:52 | DIAGNOSTIC IMAGING REPORT ---
ABD/PELVIS IV CONTRAST ONLY CLINICAL HISTORY: 27 years-old Female presenting with ABDOMINAL PAIN, BLOODY STOOLS, severe abdominal cramping. TECHNIQUE: Multidetector CT of the abdomen and pelvis was performed after the administration of intravenous contrast. IV contrast: 94 mL of Optiray 320. A dose lowering technique was used consistent with the principles of ALARA (as low as reasonably achievable). COMPARISON: None. CT DOSE (mGy.cm): The estimated cumulative dose is 484.25 mGy.cm. FINDINGS: Instructor Hairspring topogram: Unremarkable. Lung bases: Minimal basilar opacities, likely atelectasis. Normal heart size. No pericardial or pleural effusion. Liver: Normal morphology. No liver lesion. Patent hepatic vasculature. Biliary: No intrahepatic or extrahepatic biliary ductal dilatation. Normal gallbladder. Pancreas: Normal. Spleen: Normal. Adrenal glands: Normal. Kidneys and ureters: Subcentimeter hypodensity in the posterior aspect of the interpolar region the right kidney likely small cyst. Similar cyst noted in the left kidney. Parenchyma otherwise normal. No nephrolithiasis. No hydronephrosis. Bladder: Incompletely evaluated secondary to underdistention. Pelvic organs: Uterus and ovaries normal. Bowel: Mild colonic wall thickening of the descending colon with trace pericolonic inflammatory change. The transverse colon is involved to a lesser degree. The sigmoid colon and rectum are not overtly inflamed. The appendix is normal. No bowel obstruction. Peritoneal cavity: No free fluid or intraperitoneal gas. Lymph nodes: No enlarged lymph nodes in the abdomen or pelvis. Vasculature: Aorta and IVC patent and normal in caliber. Abdominal wall: Normal. Musculoskeletal: Normal. IMPRESSION: 1. Thickening along the transverse and descending colon, most likely infectious colitis. Only mild pericolonic inflammatory changes. Ulcerative colitis is a less likely diagnostic consideration considering lack of involvement of the sigmoid colon and rectum. Electronically signed by: Devin Hurst M.D. 03/10/2018 3:50 PM Dictated Date/Time: 03/10/2018 3:44 PM
[2018-03-10 17:50] VITALS: BP 140/82; PULSE 92; O2SAT 97
== END 2018-03-10 17:52 | disposition home or self-care (01) ==
LOC: C.EDB 13:32
DX: K52.9 Noninfective gastroenteritis and colitis, unspecified (principal)